=== PATIENT | male | born 1950 | race Caucasian/White ===

== ENCOUNTER 2018-03-07 19:59 | Inpatient (IN) | payer OTHER ==
[~2018-03-07] VITALS: Ht 182.9 cm; Wt 132.2 kg
[~2018-03-07 19:59] MED LIST: BAY PO; GLU5 PO; GLU500 PO; SIN25 PO; ZOC10 PO
[2018-03-07 20:45] LABS: BILIRUBIN TOTAL 0.7 mg/dL (0.20-1.00); CALCIUM 8.8 mg/dL (8.5-10.1); CARBON DIOXIDE 25.8 mmol/L (21-32); CREATININE SERUM 3.7 mg/dL (0.7-1.3); POTASSIUM SERUM 4.7 mmol/L (3.5-5.1)
[2018-03-07 20:48] LABS: ALBUMIN 2.3 g/dL (3.4-5.0); TOTAL PROTEIN, SERUM 5.5 g/dL (6.4-8.2)
[2018-03-07 20:55] LABS: PLATELET COUNT 133 x10^3mcL (130-400)
[2018-03-07 20:56] LABS: RED CELL DISTRIBUTION WIDTH 19.2 % (11.5-14.5)
[2018-03-07 21:28] LABS: BAND NEUTROPHIL 2 % (0-10); BASOPHIL 0 % (0-2); MONOCYTE 15 % (0-7); SEGMENTED NEUTROPHILS 73 % (37-75); rbc morphology (normal/abnorm) ABNORMAL (NORMAL)
[2018-03-07 22:05] VITALS: BP 102/57
[2018-03-07 22:37] VITALS: BP 119/69
[2018-03-07 22:38] LABS: T3 TOTAL 0.69 ng/mL
[2018-03-07 23:19] LABS: FREE T4 0.99 ng/dL (0.76-1.46)
[2018-03-07 23:22] LABS: FREE THYROXINE INDEX 1.7 ug/dL (1.4-4.5)
[2018-03-07 23:41] LABS: TOTAL IRON BINDING CAPACITY 312 ug/dL (250-450)
[2018-03-07 23:50] LABS: IRON 33 ug/dL (65-170)
[2018-03-07 23:58] VITALS: BP 90/45
[2018-03-08] VITALS (10 sets, daily range): BP systolic 105–150; BP diastolic 49–64
[2018-03-08 00:02] LABS: RED BLOOD CELLS 2.19 M/mm3 (4.52-5.90)
[2018-03-08 04:42] LABS: PLATELET COUNT 112 x10^3mcL (130-400); RED CELL DISTRIBUTION WIDTH 19.2 % (11.5-14.5)
[2018-03-08 05:05] LABS: CALCIUM 8.6 mg/dL (8.5-10.1); CARBON DIOXIDE 24.7 mmol/L (21-32); POTASSIUM SERUM 5.4 mmol/L (3.5-5.1)
[2018-03-08 05:07] LABS: CREATININE SERUM 4.1 mg/dL (0.7-1.3)
[2018-03-08 06:42] LABS: BAND NEUTROPHIL 8 % (0-10); METAMYELOCTE 1 % (0-2); MONOCYTE 10 % (0-7); SEGMENTED NEUTROPHILS 74 % (37-75); rbc morphology (normal/abnorm) ABNORMAL (NORMAL)
[2018-03-08 08:48] LABS: AMYLASE 65 U/L (25-115); LIPASE 212 IU/L (73-393); MAGNESIUM 2.1 mg/dL (1.8-2.4); PHOSPHOROUS 4.3 mg/dL (2.5-4.9)
[2018-03-08 08:51] LABS: CHOLESTEROL 107 mg/dL (<200); CHOLESTEROL/HDL RATIO 13.4; HDL CHOLESTEROL 8 mg/dL (40-60); TRIGLYCERIDES 548 mg/dL (<150)
[2018-03-08 10:38] LABS: UA SPECIFIC GRAVITY 1.025 (1.005-1.035); microscopic required? YES; urine erythrocyte NEGATIVE (NEGATIVE)
[2018-03-08 10:48] LABS: AMPHETAMINE QUAL UR NONE DETECTED (See below)
[2018-03-08 11:17] LABS: BASOPHIL % 0 % (0-2); PLATELET COUNT 123 x10^3mcL (130-400); RED CELL DISTRIBUTION WIDTH 19.4 % (11.5-14.5)
[2018-03-08 11:32] LABS: rbc morphology (normal/abnorm) ABNORMAL (NORMAL); tear drop cell (dacryocyte) 1+
[2018-03-08 12:19] LABS: IRON 38 ug/dL (65-170); TOTAL IRON BINDING CAPACITY 292 ug/dL (250-450)
[2018-03-08 16:59] LABS: CALCIUM 8.4 mg/dL (8.5-10.1); CARBON DIOXIDE 23.4 mmol/L (21-32); POTASSIUM SERUM 4.1 mmol/L (3.5-5.1)
[2018-03-08 17:03] LABS: CREATININE SERUM 4.6 mg/dL (0.7-1.3)
[2018-03-08 18:32] LABS: PLATELET COUNT 147 x10^3mcL (130-400)
[2018-03-08 18:36] LABS: BASOPHIL % 0 % (0-2); RED CELL DISTRIBUTION WIDTH 20.3 % (11.5-14.5)
[2018-03-08 18:40] LABS: rbc morphology (normal/abnorm) ABNORMAL (NORMAL)
[2018-03-09] VITALS (7 sets, daily range): BP systolic 111–129; BP diastolic 61–71
[2018-03-09 05:40] LABS: PLATELET COUNT 132 x10^3mcL (130-400)
[2018-03-09 05:48] LABS: RED CELL DISTRIBUTION WIDTH 19.7 % (11.5-14.5)
[2018-03-09 05:51] LABS: BILIRUBIN TOTAL 0.34 mg/dL (0.20-1.00); CALCIUM 8.6 mg/dL (8.5-10.1); CARBON DIOXIDE 26.1 mmol/L (21-32); MAGNESIUM 2.4 mg/dL (1.8-2.4); PHOSPHOROUS 6.4 mg/dL (2.5-4.9); POTASSIUM SERUM 4.8 mmol/L (3.5-5.1)
[2018-03-09 05:54] LABS: ALBUMIN 2.1 g/dL (3.4-5.0); TOTAL PROTEIN, SERUM 5.1 g/dL (6.4-8.2)
[2018-03-09 05:55] LABS: CREATININE SERUM 4.1 mg/dL (0.7-1.3)
[2018-03-09 06:01] LABS: BAND NEUTROPHIL 35 % (0-10); MONOCYTE 12 % (0-7); SEGMENTED NEUTROPHILS 48 % (37-75)
[2018-03-09 06:02] LABS: METAMYELOCTE 1 % (0-2); PLATELET MORPHOLOGY PLATELETS NORMAL; rbc morphology (normal/abnorm) ABNORMAL (NORMAL)
[2018-03-10] VITALS (11 sets, daily range): BP systolic 106–143; BP diastolic 25–80
[2018-03-10 05:56] LABS: PLATELET COUNT 159 x10^3mcL (130-400)
[2018-03-10 06:01] LABS: BASOPHIL % 0 % (0-2)
[2018-03-10 06:06] LABS: CALCIUM 8.7 mg/dL (8.5-10.1); CARBON DIOXIDE 25.8 mmol/L (21-32); CREATININE SERUM 3.8 mg/dL (0.7-1.3); MAGNESIUM 2.1 mg/dL (1.8-2.4); PHOSPHOROUS 5.7 mg/dL (2.5-4.9); POTASSIUM SERUM 4.1 mmol/L (3.5-5.1)
[2018-03-10 13:18] LABS: microalbumin:creatinine ratio 234.4 (0.0-30.0)
[2018-03-11] VITALS (19 sets, daily range): BP systolic 94–127; BP diastolic 49–66
[2018-03-11 05:33] LABS: BASOPHIL % 0 % (0-2); PLATELET COUNT 120 x10^3mcL (130-400); RED CELL DISTRIBUTION WIDTH 20.5 % (11.5-14.5)
[2018-03-11 05:42] LABS: CALCIUM 8.4 mg/dL (8.5-10.1); CARBON DIOXIDE 25.3 mmol/L (21-32); MAGNESIUM 1.9 mg/dL (1.8-2.4); PHOSPHOROUS 5.7 mg/dL (2.5-4.9); POTASSIUM SERUM 4.9 mmol/L (3.5-5.1)
[2018-03-11 06:54] LABS: rbc morphology (normal/abnorm) ABNORMAL (NORMAL)
[2018-03-12] VITALS (16 sets, daily range): BP systolic 94–127; BP diastolic 46–56
[2018-03-12 05:54] LABS: CALCIUM 8.3 mg/dL (8.5-10.1); CARBON DIOXIDE 24.2 mmol/L (21-32); MAGNESIUM 2.4 mg/dL (1.8-2.4); POTASSIUM SERUM 5.2 mmol/L (3.5-5.1)
[2018-03-12 05:59] LABS: CREATININE SERUM 5.2 mg/dL (0.7-1.3)
[2018-03-12 07:13] LABS: BASOPHIL % 0 % (0-2); PLATELET COUNT 111 x10^3mcL (130-400); RED CELL DISTRIBUTION WIDTH 20.1 % (11.5-14.5)
[2018-03-12 08:24] LABS: rbc morphology (normal/abnorm) ABNORMAL (NORMAL)
[2018-03-13] VITALS (15 sets, daily range): BP systolic 85–120; BP diastolic 41–70
[2018-03-13 05:59] LABS: PLATELET COUNT 113 x10^3mcL (130-400); RED CELL DISTRIBUTION WIDTH 20.8 % (11.5-14.5)
[2018-03-13 06:03] LABS: CALCIUM 8.4 mg/dL (8.5-10.1); CARBON DIOXIDE 21.3 mmol/L (21-32); MAGNESIUM 2.7 mg/dL (1.8-2.4); PHOSPHOROUS 7.7 mg/dL (2.5-4.9); POTASSIUM SERUM 5.2 mmol/L (3.5-5.1)
[2018-03-13 06:14] LABS: CREATININE SERUM 6.5 mg/dL (0.7-1.3)
[2018-03-13 07:23] LABS: BAND NEUTROPHIL 14 % (0-10); BASOPHIL 0 % (0-2); MONOCYTE 14 % (0-7); SEGMENTED NEUTROPHILS 52 % (37-75)
[2018-03-13 07:26] LABS: rbc morphology (normal/abnorm) ABNORMAL (NORMAL)
[2018-03-13 07:27] LABS: MYELOCYTE 0 % (0-2)
[2018-03-13 07:32] LABS: METAMYELOCTE 10 % (0-2)
[2018-03-14] VITALS (17 sets, daily range): BP systolic 87–113; BP diastolic 39–55
[2018-03-14 05:51] LABS: CALCIUM 7.2 mg/dL (8.5-10.1); CARBON DIOXIDE 23.7 mmol/L (21-32); MAGNESIUM 2.1 mg/dL (1.8-2.4); PHOSPHOROUS 6.1 mg/dL (2.5-4.9); POTASSIUM SERUM 4.8 mmol/L (3.5-5.1)
[2018-03-14 05:57] LABS: CREATININE SERUM 5.2 mg/dL (0.7-1.3)
[2018-03-14 06:19] LABS: PLATELET COUNT 107 x10^3mcL (130-400); RED CELL DISTRIBUTION WIDTH 20.3 % (11.5-14.5)
[2018-03-14 07:33] LABS: BAND NEUTROPHIL 15 % (0-10); BASOPHIL 0 % (0-2); METAMYELOCTE 9 % (0-2); MONOCYTE 16 % (0-7); SEGMENTED NEUTROPHILS 52 % (37-75)
[2018-03-14 07:36] LABS: rbc morphology (normal/abnorm) ABNORMAL (NORMAL)
[2018-03-14 15:39] LABS: PLATELET COUNT 108 x10^3mcL (130-400); RED CELL DISTRIBUTION WIDTH 20.4 % (11.5-14.5)
[2018-03-14 17:04] LABS: BAND NEUTROPHIL 42 % (0-10); METAMYELOCTE 3 % (0-2); MONOCYTE 15 % (0-7); MYELOCYTE 5 % (0-2); SEGMENTED NEUTROPHILS 22 % (37-75)
[2018-03-14 17:05] LABS: rbc morphology (normal/abnorm) ABNORMAL (NORMAL)
[2018-03-14 17:07] LABS: tear drop cell (dacryocyte) 1+
[2018-03-15] VITALS (19 sets, daily range): BP systolic 90–154; BP diastolic 48–78
[2018-03-15 01:16] LABS: PLATELET COUNT 107 x10^3mcL (130-400); RED CELL DISTRIBUTION WIDTH 19.7 % (11.5-14.5)
[2018-03-15 01:52] LABS: BAND NEUTROPHIL 33 % (0-10); BASOPHIL 0 % (0-2); METAMYELOCTE 3 % (0-2); MONOCYTE 5 % (0-7); MYELOCYTE 1 % (0-2); SEGMENTED NEUTROPHILS 47 % (37-75)
[2018-03-15 01:53] LABS: rbc morphology (normal/abnorm) ABNORMAL (NORMAL)
[2018-03-15 01:55] LABS: PLATELET MORPHOLOGY PLATELETS DECREASED
[2018-03-15 08:21] LABS: CALCIUM 7.8 mg/dL (8.5-10.1); CARBON DIOXIDE 28.1 mmol/L (21-32); PHOSPHOROUS 7.4 mg/dL (2.5-4.9); POTASSIUM SERUM 4.5 mmol/L (3.5-5.1)
[2018-03-15 08:22] LABS: CREATININE SERUM 5.4 mg/dL (0.7-1.3)
[2018-03-16] VITALS (16 sets, daily range): BP systolic 78–115; BP diastolic 50–77
[2018-03-16 05:32] LABS: PLATELET COUNT 85 x10^3mcL (130-400); RED CELL DISTRIBUTION WIDTH 19.5 % (11.5-14.5)
[2018-03-16 05:43] LABS: CALCIUM 8.1 mg/dL (8.5-10.1); CARBON DIOXIDE 25.7 mmol/L (21-32); MAGNESIUM 2.3 mg/dL (1.8-2.4); POTASSIUM SERUM 5.3 mmol/L (3.5-5.1)
[2018-03-16 05:44] LABS: CREATININE SERUM 7.2 mg/dL (0.7-1.3)
[2018-03-16 05:45] LABS: PHOSPHOROUS 9.8 mg/dL (2.5-4.9)
[2018-03-16 09:46] LABS: BAND NEUTROPHIL 27 % (0-10); BASOPHIL 0 % (0-2); METAMYELOCTE 5 % (0-2); MONOCYTE 6 % (0-7); SEGMENTED NEUTROPHILS 57 % (37-75); rbc morphology (normal/abnorm) ABNORMAL (NORMAL); tear drop cell (dacryocyte) 2+
[2018-03-17] VITALS (17 sets, daily range): BP systolic 84–122; BP diastolic 47–70
[2018-03-17 05:12] LABS: CALCIUM 7.8 mg/dL (8.5-10.1); CARBON DIOXIDE 28.4 mmol/L (21-32); MAGNESIUM 2.2 mg/dL (1.8-2.4); POTASSIUM SERUM 5.2 mmol/L (3.5-5.1)
[2018-03-17 05:16] LABS: PLATELET COUNT 136 x10^3mcL (130-400)
[2018-03-17 05:27] LABS: CREATININE SERUM 6.5 mg/dL (0.7-1.3)
[2018-03-17 05:30] LABS: PHOSPHOROUS 10.7 mg/dL (2.5-4.9)
[2018-03-17 06:31] LABS: BAND NEUTROPHIL 42 % (0-10); BASOPHIL 0 % (0-2); METAMYELOCTE 2 % (0-2); MONOCYTE 8 % (0-7); MYELOCYTE 1 % (0-2); SEGMENTED NEUTROPHILS 44 % (37-75); rbc morphology (normal/abnorm) ABNORMAL (NORMAL); tear drop cell (dacryocyte) 1+
[2018-03-18] VITALS (10 sets, daily range): BP systolic 82–117; BP diastolic 47–66; Ht 182.9 cm; Wt 132.2 kg
[2018-03-18 07:13] LABS: CALCIUM 7.2 mg/dL (8.5-10.1); MAGNESIUM 2.1 mg/dL (1.8-2.4); POTASSIUM SERUM 4.1 mmol/L (3.5-5.1)
[2018-03-18 07:23] LABS: PLATELET COUNT 118 x10^3mcL (130-400); RED CELL DISTRIBUTION WIDTH 20.4 % (11.5-14.5)
[2018-03-18 07:54] LABS: CREATININE SERUM 6.6 mg/dL (0.7-1.3)
[2018-03-18 09:25] LABS: BAND NEUTROPHIL 46 % (0-10); BASOPHIL 0 % (0-2); METAMYELOCTE 3 % (0-2); MONOCYTE 7 % (0-7); MYELOCYTE 6 % (0-2); SEGMENTED NEUTROPHILS 35 % (37-75); rbc morphology (normal/abnorm) ABNORMAL (NORMAL)
[2018-03-18 09:26] LABS: tear drop cell (dacryocyte) 1+
[2018-03-18 09:27] LABS: schistocyte (helmet cell) 1+
[2018-03-18 09:28] LABS: PLATELET MORPHOLOGY PLATELETS DECREASED
== END 2018-03-18 17:55 | disposition expired | DRG 870 ==
LOC: ED 19:59 → IC 21:15 → DU 21:15 → IC 03-08 12:43
PROVIDERS: Emergency Medicine; Family Medicine; Internal Medicine; Internal Medicine Nephrology
PROC: 30233N1 Transfusion of Nonautologous Red Blood Cells into Peripheral Vein, Percutaneous Approach (ICD-10-PCS; principal; 2018-03-08)
PROC: 5A1955Z Respiratory Ventilation, Greater than 96 Consecutive Hours (ICD-10-PCS; 2018-03-10)
PROC: 0BH17EZ Insertion of Endotracheal Airway into Trachea, Via Natural or Artificial Opening (ICD-10-PCS; 2018-03-10)
PROC: 05HM33Z Insertion of Infusion Device into Right Internal Jugular Vein, Percutaneous Approach (ICD-10-PCS; 2018-03-13)
PROC: B543ZZA Ultrasonography of Right Jugular Veins, Guidance (ICD-10-PCS; 2018-03-13)
PROC: 5A1D70Z Performance of Urinary Filtration, Intermittent, Less than 6 Hours Per Day (ICD-10-PCS; 2018-03-13)
DX: A41.9 Sepsis, unspecified organism (principal); J69.0 Pneumonitis due to inhalation of food and vomit; J96.21 Acute and chronic respiratory failure with hypoxia; N17.0 Acute kidney failure with tubular necrosis; E43 Unspecified severe protein-calorie malnutrition; R65.21 Severe sepsis with septic shock; J44.1 Chronic obstructive pulmonary disease with (acute) exacerbation; J80 Acute respiratory distress syndrome; D68.59 Other primary thrombophilia; K21.9 Gastro-esophageal reflux disease without esophagitis; J84.10 Pulmonary fibrosis, unspecified; E87.5 Hyperkalemia; E11.22 Type 2 diabetes mellitus with diabetic chronic kidney disease; I12.9 Hypertensive chronic kidney disease with stage 1 through stage 4 chronic kidney disease, or unspecified chronic kidney disease; N18.9 Chronic kidney disease, unspecified; D63.1 Anemia in chronic kidney disease; E78.5 Hyperlipidemia, unspecified; Z68.24 Body mass index [BMI] 24.0-24.9, adult; Z79.82 Long term (current) use of aspirin; Z99.81 Dependence on supplemental oxygen; Z87.891 Personal history of nicotine dependence; Z79.84 Long term (current) use of oral hypoglycemic drugs; Z66 Do not resuscitate
CPT/HCPCS: 36556; 36600; 82962; 83880; 84439; 94150; A4628; C9113; J0330; J0696; J0885-EC; J1450; J1642; J1644; J1815; J1885; J1940; J1956; J2060; J2150; J2250; J2270; J2370; J2405; J2543; J2704; J2765; J2930; J3010; J3370; J3490; J7030; J7040; J7050; J7613; J7620; J7626; J7644; P9016; P9047; Q0092; Q0163